=== PATIENT | female | born 1970 | race Caucasian/White ===

== ENCOUNTER → 2018-01-12 | Outpatient (CLI) | payer OTHER ==
[2018-01-12 13:35] VITALS: BP 125/80; PULSE 92; RESP 16; TEMP 98.1
--- NOTE | 2018-01-12 14:34 | P.CONS ---
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 Recently the patient was found to have meningiomas and the benign cysts in the cranium of the occiput. The patient also states that she has brain cancer 2 and she is going to [facility] for follow-up above that. She has pain in the back of her head that gets worse with neck movement and with stress also with driving. The pain gets better by applying ice on the area or chewing ice as she states. The patient denies any bowel or bladder dysfunction. She uses 1-2 pills of Tylenol 3 a day for her headache and she used to be on Neurontin which did help her headache however she does not know why she stopped using it. The patient describes her headache as squeezing in quality. It is constant and it is not associated with photophobia or with nausea or vomiting. Review of Systems Cardiovascular: Denies as per HPI, Denies chest pain, Denies claudication, Denies decreased exercise tolerance, Denies dyspnea on exertion, Denies edema, Denies high blood pressure, Denies irregular heart beat, Denies leg edema, Denies lightheadedness, Denies orthopnea, Denies palpitations, Denies paroxysmal nocturnal dyspnea, Denies phlebitis, Denies rapid heart beat, Denies shortness of breath, Denies syncope Gastrointestinal: Denies as per HPI, Denies abdominal pain, Denies belching, Denies bloating, Denies BRBPR, Denies change in bowel habits, Denies coffee ground emesis, Denies constipation, Denies diarrhea, Denies dyspepsia, Denies early satiety, Denies excessive gas, Denies heartburn, Denies hematemesis, Denies hematochezia, Denies indigestion, Denies jaundice, Denies lactose intolerance, Denies loss of appetite, Denies melena, Denies nausea, Denies vomiting Musculoskeletal: Reports as per HPI Neurological: Reports as per HPI Past Medical History Past Medical History: Fibromyalgia, Memory Impairment, Osteoarthritis (OA), Sleep Apnea/CPAP/BIPAP, Thyroid Disorder Additional Past Medical History / Comment(s): "BRAIN CANCER A CHILD AND RETURNED IN APRIL 2017" per patient although no documentation found supporting this. BENIGN BRAIN TUMOR. LEWIS'S DISEASE. History of Any Multi-Drug Resistant Organisms: None Reported Past Surgical History: Cholecystectomy, Hernia Repair, Joint Replacement, Orthopedic Surgery Additional Past Surgical History / Comment(s): LEFT LEG SURGERY. Past Anesthesia/Blood Transfusion Reactions: No Reported Reaction Past Psychological History: Bipolar, Depression, PTSD Smoking Status: Never smoker Past Alcohol Use History: Occasional Past Drug Use History: None Reported - Past Family History Mother Family Medical History: Cancer Additional Family Medical History / Comment(s): COLON. Father Additional Family Medical History / Comment(s): HEADACHES. OF SUICIDE. Medications and Allergies Home Medications Medication Instructions Recorded Confirmed Type Acetaminophen [Tylenol] 600 mg PO BID PRN 01/12/18 01/12/18 History DULoxetine HCL [Cymbalta] 30 mg PO DAILY 01/12/18 01/12/18 History DULoxetine HCL [Cymbalta] 60 mg PO HS 01/12/18 01/12/18 History Gabapentin [Neurontin] 300 mg PO Q8H 01/12/18 01/12/18 History Glucosamine Sulfate 1 tab PO DAILY 01/12/18 01/12/18 History Levothyroxine Sodium [Tirosint] 125 mcg PO DAILY 01/12/18 01/12/18 History Lurasidone HCl [Latuda] 60 mg PO HS 01/12/18 01/12/18 History Magnesium 1 tab PO DAILY 01/12/18 01/12/18 History Zinc 1 tab PO DAILY 01/12/18 01/12/18 History amLODIPine BESYLATE [Norvasc] 2.5 mg PO DAILY 01/12/18 01/12/18 History traMADol HCl [Ultram] 50 mg PO DAILY PRN 01/12/18 01/12/18 History Allergies Allergy/AdvReac Type Severity Reaction Status Date / Time latex Allergy skin Verified 01/12/18 13:08 redness and peels skin levothyroxine sodium Allergy Anaphylaxis Verified 01/12/18 13:08 Penicillins Allergy Nausea & Verified 01/12/18 13:08 Vomiting,rash around mouth Physical Exam Vitals: Vital Signs Temp Pulse Resp BP Pulse Ox 01/12/18 13:25 98.1 F 92 16 125/80 96 - Constitutional General appearance: morbidly obese - EENT Eyes: PERRLA - Respiratory Respiratory: bilateral: CTA - Cardiovascular Rhythm: regular - Neurologic Neurologic: CNII-XII intact - Psychiatric Psychiatric: A&O x's 3, appropriate affect, intact judgment & insight Neuro exam of the upper extremities showed decreased but symmetrical biceps reflexes and absent triceps reflexes bilaterally. She has normal muscle strength in the upper extremities bilaterally and symmetrically. She has tenderness in the cervical paravertebral area bilaterally and in the trapezius muscles bilaterally. She has well-healed scar in the back of her neck from previous brain surgery. She has decreased range of motion of the cervical spine especially for right and left rotation. Assessment and Plan Plan: This is a 47-year-old morbidly obese female with history of childhood brain malignancy that was treated by resection. The patient states that she has a recurrence of her brain cancer however we have no documentation of that. The patient has a benign cyst in the occipital cranium. She has cervical spondylosis without myelopathy and myofascial pain in the cervical paravertebral musculature. The patient will follow up with [facility] for her brain pathology. I will restart the patient on Neurontin 300 mg to be gradually increased to 3 times a day. The patient is to continue using Tylenol for her headache. We will see the patient 4 weeks from now and of this treatment is not good enough for her headache then we will plan on doing trigger point injection in the cervical paravertebral area. She also might be a candidate for third occipital nerve block and C2,C3 medial branch blocks. We will need to have documentation from her neurosurgeon about the brain pathology that she has right now. The patient will be reevaluated 4 weeks from now and hopefully at that time she will bring back the documentations needed full reevaluation.
== END | disposition home or self-care (01) ==
LOC: PNWHC3 12:38
PROVIDERS: ATTEND Anesthesiology
DX: M47.812 Spondylosis without myelopathy or radiculopathy, cervical region (principal); M79.7 Fibromyalgia; M19.90 Unspecified osteoarthritis, unspecified site; G47.30 Sleep apnea, unspecified; E07.9 Disorder of thyroid, unspecified; Z88.8 Allergy status to other drugs, medicaments and biological substances; Z79.891 Long term (current) use of opiate analgesic; Z88.0 Allergy status to penicillin; Z79.899 Other long term (current) drug therapy; Z85.841 Personal history of malignant neoplasm of brain
CPT/HCPCS: 99201